=== PATIENT | female | born 1985 | race Caucasian/White ===

== ENCOUNTER 2017-10-15 13:41 | Emergency (ER) | payer SELFPAY ==
[~2017-10-15] VITALS: Ht 170.2 cm; Wt 74.8 kg
[~2017-10-15 13:41] MED LIST: CLIN150C14 PO; HYDR-971 PO; PROM25TA10 PO; TRAM50TA PO
--- NOTE | 2017-10-15 14:07 | PHYS DOC ---
Past Medical History Past Medical History: Anxiety, GERD, UTI Additional Past Medical Histor: herpes Past Surgical History: Tonsillectomy Additional Past Surgical Histo: collar bone, 47 moles removed Alcohol Use: Heavy Drug Use: Marijuana Adult General Chief Complaint Chief Complaint: COUGH HPI HPI Patient is a 31 year old female with a history of anxiety and smoking 1 pack of cigarettes a day who presents today with a productive cough for 1 month. Patient denies any fever. Review of Systems Review of Systems Constitutional: Denies fever or chills [] Eyes: Denies change in visual acuity, redness, or eye pain [] HENT: Denies nasal congestion or sore throat [] Respiratory: Reports productive cough, denies shortness of breath [] Cardiovascular: No additional information not addressed in HPI [] GI: Denies abdominal pain, nausea, vomiting, bloody stools or diarrhea [] : Denies dysuria or hematuria [] Musculoskeletal: Denies back pain or joint pain [] Integument: Denies rash or skin lesions [] Neurologic: Denies headache, focal weakness or sensory changes [] All other systems were reviewed and found to be within normal limits, except as documented in this note. Current Medications Current Medications Current Medications Medications (Trade) Dose Ordered Sig/Jus Start Time Stop Time Status Last Admin Dose Admin Albuterol/ Ipratropium (Duoneb) 3 ml 1X ONCE 10/15/17 14:15 10/15/17 14:16 DC 10/15/17 14:30 3 ML Benzonatate (Tessalon Perle) 100 mg 1X ONCE 10/15/17 14:15 10/15/17 14:16 DC 10/15/17 14:19 100 MG Prednisone (Prednisone) 60 mg 1X ONCE 10/15/17 14:15 10/15/17 14:16 DC 10/15/17 14:19 60 MG Allergies Allergies Allergies Coded Allergies Type Severity Reaction Last Updated Verified No Known Drug Allergies 02/19/15 No Physical Exam Physical Exam Constitutional: Well developed, well nourished, no acute distress, non-toxic appearance. [] HENT: Normocephalic, atraumatic, bilateral external ears normal, oropharynx moist, no oral exudates, nose normal. [] Eyes: PERRLA, EOMI, conjunctiva normal, no discharge. [] Neck: Normal range of motion, no tenderness, supple, no stridor. [] Cardiovascular:Heart rate regular rhythm, no murmur [] Lungs & Thorax: Bilateral breath sounds clear to auscultation, patient is actively coughing in the ED Abdomen: Bowel sounds normal, soft, no tenderness, no masses, no pulsatile masses. [] Skin: Warm, dry, no erythema, no rash. [] Back: No tenderness, no CVA tenderness. [] Extremities: No tenderness, no cyanosis, no clubbing, ROM intact, no edema. [] Neurologic: Alert and oriented X 3, normal motor function, normal sensory function, no focal deficits noted. [] Psychologic: Affect normal, judgement normal, mood normal. [] Current Patient Data Vital Signs Vital Signs Date Time Temp Pulse Resp B/P (MAP) Pulse Ox O2 Delivery O2 Flow Rate FiO2 10/15/17 14:30 Room Air 10/15/17 14:12 98.2 97 18 100 98.2 EKG EKG [] Radiology/Procedures Radiology/Procedures [] Course & Med Decision Making Course & Med Decision Making Pertinent Labs and Imaging studies reviewed. (See chart for details) Patient is in the ED with a productive cough for 1 month. She is a smoker, she was encouraged to consider smoking cessation. Chest x-ray interpreted by radiologist was negative for any acute findings. Symptoms are consistent with bronchitis. Discharged with albuterol inhaler prednisone and Tessalon Perles. Follow-up with PCP in 1-2 weeks. Dragon Disclaimer Dragon Disclaimer This electronic medical record was generated, in whole or in part, using a voice recognition dictation system. Departure Departure Impression: Primary Impression: Acute bronchitis Additional Impression: Smoking addiction Disposition: 01 HOME, SELF-CARE Condition: STABLE Referrals: NO PCP (PCP) Follow up with your doctor in one week Patient Instructions: Acute Bronchitis, [id number], Smoking Cessation Additional Instructions: You were seen with symptoms consistent of bronchitis, consider smoking cessation. Take the prescribed medicines as ordered. Follow-up with your doctor in 1-2 weeks. Scripts Benzonatate (TESSALON PERLE) 100 Mg Capsule 1 CAP PO TID, #30 CAP Prov: JESSICA SMITH SOFTWARE ANALYST 10/15/17 Albuterol Sulfate (PROAIR HFA INHALER) 8.5 Gm Hfa.aer.ad 1 PUFF INH PRN Q6HRS Y for SHORTNESS OF BREATH, #1 INHALER 0 Refills Prov: JESSICA SMITH APRN 10/15/17 Prednisone (PREDNISONE) 50 Mg Tablet 1 TAB PO DAILY, #4 TAB Prov: JESSICA SMITH APRN 10/15/17 Problem Qualifiers Primary Impression: Acute bronchitis Bronchitis organism: unspecified organism Qualified Codes: J20.9 - Acute bronchitis, unspecified JESSICA SMITH APRN Oct 15, 2017 14:07
[2017-10-15 14:12] VITALS: BP 149/102
[2017-10-15] MEDS ORDERED: predniSONE 20 MG TABLET PO ONE (14:15)
[2017-10-15] MEDS ORDERED: IPRATRPIUM/ALBUTEROL 0.5/2.5MG 3 ML NEBU. NEB ONE (14:15)
[2017-10-15] MEDS ORDERED: BENZONATATE 100 MG CAPSULE. PO ONE (14:15)
--- NOTE | 2017-10-15 15:05 | RAD ---
Two view chest History:Cough and congestion for 2 months . PA and lateral views of the chest are submitted. Comparison: 07/03/2015 Findings: There is no significant infiltrate, pleural effusion, or pneumothorax. The pericardial cardiac silhouette is within normal limits in size. Impression: There is no evidence of acute cardiopulmonary disease.
[2017-10-15] MEDS ORDERED: PROAIR HFA8.5 GM INH (15:20)
[2017-10-15] MEDS ORDERED: PRED50TA PO (15:20)
[2017-10-15] MEDS ORDERED: BENZ100C PO (15:20)
== END 2017-10-15 15:26 | disposition home or self-care (01) ==
LOC: ER 13:41
DX: J20.9 Acute bronchitis, unspecified (principal); K21.9 Gastro-esophageal reflux disease without esophagitis; F10.10 Alcohol abuse, uncomplicated; F17.210 Nicotine dependence, cigarettes, uncomplicated
CPT/HCPCS: 71020; 94250; 94640; 99284; J7512; J7620

== ENCOUNTER 2018-02-27 18:53 | Emergency (ER) | payer SELFPAY ==
[2018-02-27] MEDS: HYDROcodone/APAP 5/325MG 1 TAB TABLET PO (19:54)
== END 2018-02-27 20:56 | disposition home or self-care (01) ==
LOC: ER 18:53
DX: S93.402A Sprain of unspecified ligament of left ankle, initial encounter (principal); F41.9 Anxiety disorder, unspecified; F12.10 Cannabis abuse, uncomplicated; F10.20 Alcohol dependence, uncomplicated; Z87.440 Personal history of urinary (tract) infections; W01.0XXA Fall on same level from slipping, tripping and stumbling without subsequent striking against object, initial encounter; Y93.89 Activity, other specified; Y92.89 Other specified places as the place of occurrence of the external cause; Y99.8 Other external cause status
CPT/HCPCS: 73610; 99284

== ENCOUNTER 2018-07-15 16:35 | Emergency (ER) | payer SELFPAY ==
[~2018-07-15] VITALS: Ht 170.2 cm; Wt 81.6 kg
[~2018-07-15 16:35] MED LIST changes: +BENZ100C PO; +HYDR-2758 PO; +PRED50TA PO; +PROAIR HFA8.5 GM INH
[2018-07-15] MEDS ORDERED: fentaNYL PF VIAL 100 MCG/2 ML VIAL IV ONE ×2 (17:30→20:00)
[2018-07-15] MEDS ORDERED: IV NORMAL SALINE 1000ML BAG 1,000 ML IV ONE ×2 (17:30→20:15)
[2018-07-15 17:35] LABS: BASO # 0.1 x10^3/uL (0.0-0.2); BASO % 1 % (0-3); EOS # 0.1 x10^3/uL (0.0-0.7); EOS % 2 % (0-3); HEMATOCRIT 44.2 % (36.0-47.0); HEMOGLOBIN 15.1 g/dL (12.0-15.5); LYMPH # 3.4 x10^3/uL (1.0-4.8); LYMPH % 43 % (24-48); MEAN CORPUSCULAR HEMOGLOBIN 34 pg (25-35); MEAN CORPUSCULAR HGB CONC 34 g/dL (31-37); MEAN CORPUSCULAR VOLUME 99 fL (79-100); MONO # 0.5 x10^3/uL (0.0-1.1); MONO % 6 % (0-9); NEUT % 49 % (31-73); PLATELET COUNT 340 x10^3/uL (140-400); RED BLOOD COUNT 4.45 x10^6/uL (3.50-5.40); RED CELL DISTRIBUTION WIDTH 14.7 % (11.5-14.5); WHITE BLOOD COUNT 8.1 x10^3/uL (4.0-11.0)
[2018-07-15 17:36] LABS: BILIRUBIN,URINE SMALL (NEG); CLARITY,URINE TURBID; NITRITE,URINE NEGATIVE (NEG); PROTEIN,URINE NEGATIVE (NEG-TRACE)
[2018-07-15 17:55] LABS: COLOR,URINE DK YELLOW
[2018-07-15 18:00] LABS: AMORPHOUS SEDIMENT,UR PRESENT /HPF; BACTERIA,URINE FEW /HPF (0-FEW); RBC,URINE 0 /HPF (0-2); SQUAMOUS EPITHELIAL CELL,UR MOD /LPF; WBC,URINE RARE /HPF (0-4)
[2018-07-15 18:11] LABS: CALCIUM 8.9 mg/dL (8.5-10.1); CREATININE 0.7 mg/dL (0.6-1.0); POTASSIUM 3.6 mmol/L (3.5-5.1)
[2018-07-15 18:16] LABS: ALBUMIN 3.6 g/dL (3.4-5.0); TOTAL BILIRUBIN 0.7 mg/dL (0.2-1.0); TOTAL PROTEIN 7.2 g/dL (6.4-8.2)
[2018-07-15 19:45] LABS: U PREG PATIENT NEGATIVE (NEG)
[2018-07-15] MEDS ORDERED: CIPROFLOXACIN 400MG PREMIX 200 ML IV SCH (20:00)
--- NOTE | 2018-07-15 20:08 | RAD ---
EXAM: Abdomen and pelvis CT without intravenous contrast. HISTORY: Right flank pain. TECHNIQUE: Computed tomographic images of the abdomen and pelvis were obtained without contrast. Multiplanar reformatting was performed. *One or more of the following individualized dose reduction techniques were utilized for this examination: 1. Automated exposure control. 2. Adjustment of the mA and/or kV according to patient size. 3. Use of iterative reconstruction technique. COMPARISON: None. FINDINGS: Evaluation of the lower thorax demonstrates no infiltrate or pleural effusion. There is a small hiatal hernia. No hepatic lesion is seen. The gallbladder is distended. This can be due to the preprandial status the patient. There is no gallbladder wall thickening or pericholecystic stranding or fluid to suggest cholecystitis. The pancreas, spleen and adrenal glands are unremarkable. There is a 1 mm nonobstructing left renal stone. No obstructing stone is seen. There is no hydronephrosis or hydroureter. The bladder is unremarkable. There is no appendicitis. There is no bowel obstruction. There is no colitis or enteritis. There are multiple bilateral ovarian cysts, the largest of which on the right measures 3.8 cm and the largest of which on the left measures 2.7 cm. There is no lymphadenopathy. There is no suspicious osseous lesion. There is a mild anterior wedge deformity of T12 and near complete loss of the T12-L1 disc space, likely congenital or the sequela of remote injury. IMPRESSION: 1. Punctate nonobstructing left renal stone. There is no obstructive uropathy. 2. Multiple ovarian cysts, the largest of which measures 3.8 cm on the right. This can be better assessed with a pelvic sonogram. Electronically signed by: Genet Zaidi MD (07/15/2018 8:04 PM) [facility]
[2018-07-15] MEDS ORDERED: KETOROLAC 30 MG/ML VIAL. IV ONE (20:15)
[2018-07-15] MEDS ORDERED: TAMSULOSIN 0.4 MG CAP.ER.24H. PO ONE (20:15)
[2018-07-15 20:22] VITALS: BP 137/82
[2018-07-15] MEDS ORDERED: IBUP-1060 PO (20:31)
[2018-07-15] MEDS ORDERED: TAMS0.4C97 PO (20:31)
[2018-07-15] MEDS ORDERED: OXYC-323 PO (20:31)
--- NOTE | 2018-07-15 20:32 | PHYS DOC ---
Past Medical History Past Medical History: Anxiety, GERD, UTI Additional Past Medical Histor: herpes Past Surgical History: Tonsillectomy Additional Past Surgical Histo: CLAVICLE Alcohol Use: Heavy Drug Use: Marijuana Adult General Chief Complaint Chief Complaint: FLANK PAIN [facility] HPI Patient is a 32 year old female who presents with flank pain. The patient states that the pain is been going on intermittently for the past week and a half. She denies fever, nausea or vomiting. She states that she is very fatigued from the pain. She states that her urine is extremely odorous. Review of Systems Review of Systems Constitutional: Denies fever or chills [] Respiratory: Denies cough or shortness of breath [] Cardiovascular: No additional information not addressed in HPI [] GI: Denies abdominal pain, nausea, vomiting, bloody stools or diarrhea [] : See history of present illness Musculoskeletal: See history of present illness Integument: Denies rash or skin lesions [] Neurologic: Denies headache, focal weakness or sensory changes [] Endocrine: Denies polyuria or polydipsia [] All other systems were reviewed and found to be within normal limits, except as documented in this note. Current Medications Current Medications Current Medications Medications (Trade) Dose Ordered Sig/Jus Start Time Stop Time Status Last Admin Dose Admin Ciprofloxacin/ Dextrose 200 ml @ 200 mls/hr Q12HR 07/15/18 20:00 07/15/18 21:36 DC 07/15/18 20:25 200 MLS/HR Fentanyl Citrate (Fentanyl 2ml Vial) 50 mcg 1X ONCE 07/15/18 20:00 07/15/18 20:01 DC 07/15/18 20:24 50 MCG Ketorolac Tromethamine (Toradol 30mg Vial) 30 mg 1X ONCE 07/15/18 20:15 07/15/18 20:16 DC 07/15/18 20:23 30 MG Sodium Chloride 1,000 ml @ 1,000 mls/hr 1X ONCE 07/15/18 20:15 07/15/18 21:14 DC 07/15/18 20:21 1,000 MLS/HR Tamsulosin HCl (Flomax) 0.4 mg 1X ONCE 07/15/18 20:15 07/15/18 20:16 DC 07/15/18 20:25 0.4 MG Allergies Allergies Allergies Coded Allergies Type Severity Reaction Last Updated Verified No Known Drug Allergies 02/19/15 No Physical Exam Physical Exam Constitutional: Well developed, well nourished, no acute distress, non-toxic appearance. [] Neck: Normal range of motion, no tenderness, supple, no stridor. [] Cardiovascular:Heart rate regular rhythm, no murmur [] Lungs & Thorax: Bilateral breath sounds clear to auscultation [] Abdomen: Bowel sounds normal, soft, no tenderness, no masses, no pulsatile masses. [] Skin: Warm, dry, no erythema, no rash. [] Back: left CVA tenderness. [] Extremities: No tenderness, no cyanosis, no clubbing, ROM intact, no edema. [] Neurologic: Alert and oriented X 3, normal motor function, normal sensory function, no focal deficits noted. [] Psychologic: Affect normal, judgement normal, mood normal. [] Current Patient Data Vital Signs Vital Signs Date Time Temp Pulse Resp B/P (MAP) Pulse Ox O2 Delivery O2 Flow Rate FiO2 07/15/18 20:22 86 137/82 (100) 97 Room Air 07/15/18 17:20 98.1 18 98.1 Lab Values Laboratory Tests Test 07/15/18 17:20 07/15/18 17:30 07/15/18 18:00 Urine Collection Type Unknown Urine Color Dk yellow Urine Clarity Turbid Urine pH 5.0 Urine Specific Essie >=1.030 Urine Protein Negative mg/dL (NEG-TRACE) Urine Glucose (UA) Negative mg/dL (NEG) Urine Ketones (Stick) Negative mg/dL (NEG) Urine Blood Negative (NEG) Urine Nitrite Negative (NEG) Urine Bilirubin Small (NEG) Urine Urobilinogen Dipstick 1.0 mg/dL (0.2 mg/dL) Urine Leukocyte Esterase Trace (NEG) Urine RBC 0 /HPF (0-2) Urine WBC Rare /HPF (0-4) Urine Squamous Epithelial Cells Mod /LPF Urine Amorphous Sediment Present /HPF Urine Bacteria Few /HPF (0-FEW) Urine Mucus Mod /LPF Urine Test Negative (NEG) White Blood Count 8.1 x10^3/uL (4.0-11.0) Red Blood Count 4.45 x10^6/uL (3.50-5.40) Hemoglobin 15.1 g/dL (12.0-15.5) Hematocrit 44.2 % (36.0-47.0) Mean Corpuscular Volume 99 fL (79-100) Mean Corpuscular Hemoglobin 34 pg (25-35) Mean Corpuscular Hemoglobin Concent 34 g/dL (31-37) Red Cell Distribution Width 14.7 % (11.5-14.5) H Platelet Count 340 x10^3/uL (140-400) Neutrophils (%) (Auto) 49 % (31-73) Lymphocytes (%) (Auto) 43 % (24-48) Monocytes (%) (Auto) 6 % (0-9) Eosinophils (%) (Auto) 2 % (0-3) Basophils (%) (Auto) 1 % (0-3) Neutrophils # (Auto) 4.0 x10^3uL (1.8-7.7) Lymphocytes # (Auto) 3.4 x10^3/uL (1.0-4.8) Monocytes # (Auto) 0.5 x10^3/uL (0.0-1.1) Eosinophils # (Auto) 0.1 x10^3/uL (0.0-0.7) Basophils # (Auto) 0.1 x10^3/uL (0.0-0.2) Sodium Level 134 mmol/L (136-145) L Potassium Level 3.6 mmol/L (3.5-5.1) Chloride Level 100 mmol/L (98-107) Carbon Dioxide Level 26 mmol/L (21-32) Anion Gap 8 (6-14) Blood Urea Nitrogen 9 mg/dL (7-20) Creatinine 0.7 mg/dL (0.6-1.0) Estimated GFR (Cockcroft-Gault) 97.0 BUN/Creatinine Ratio 13 (6-20) Glucose Level 93 mg/dL (70-99) Calcium Level 8.9 mg/dL (8.5-10.1) Total Bilirubin 0.7 mg/dL (0.2-1.0) Aspartate Amino Transferase (AST) 24 U/L (15-37) Alanine Aminotransferase (ALT) 22 U/L (14-59) Alkaline Phosphatase 90 U/L (46-116) Total Protein 7.2 g/dL (6.4-8.2) Albumin 3.6 g/dL (3.4-5.0) Albumin/Globulin Ratio 1.0 (1.0-1.7) Amylase Level 23 U/L (25-115) L Lipase 125 U/L (73-393) Laboratory Tests 07/15/18 17:30 Laboratory Tests 07/15/18 18:00 EKG EKG [] Radiology/Procedures Radiology/Procedures [] PATIENT: RAYNA KLEIN ACCOUNT: [id number] : 1985 LOCATION: ER AGE: 32 SEX: F EXAM STATUS: REG ER ORD. PHYSICIAN: EN WELSH APRN REASON: right flank pain PROCEDURE: CT ABDOMEN PELVIS WO CONTRAST EXAM: Abdomen and pelvis CT without intravenous contrast. HISTORY: Right flank pain. TECHNIQUE: Computed tomographic images of the abdomen and pelvis were obtained without contrast. Multiplanar reformatting was performed. *One or more of the following individualized dose reduction techniques were utilized for this examination: 1. Automated exposure control. 2. Adjustment of the mA and/or kV according to patient size. 3. Use of iterative reconstruction technique. COMPARISON: None. FINDINGS: Evaluation of the lower thorax demonstrates no infiltrate or pleural effusion. There is a small hiatal hernia. No hepatic lesion is seen. The gallbladder is distended. This can be due to the preprandial status the patient. There is no gallbladder wall thickening or pericholecystic stranding or fluid to suggest cholecystitis. The pancreas, spleen and adrenal glands are unremarkable. There is a 1 mm nonobstructing left renal stone. No obstructing stone is seen. There is no hydronephrosis or hydroureter. The bladder is unremarkable. There is no appendicitis. There is no bowel obstruction. There is no colitis or enteritis. There are multiple bilateral ovarian cysts, the largest of which on the right measures 3.8 cm and the largest of which on the left measures 2.7 cm. There is no lymphadenopathy. There is no suspicious osseous lesion. There is a mild anterior wedge deformity of T12 and near complete loss of the T12-L1 disc space, likely congenital or the sequela of remote injury. IMPRESSION: 1. Punctate nonobstructing left renal stone. There is no obstructive uropathy. 2. Multiple ovarian cysts, the largest of which measures 3.8 cm on the right. This can be better assessed with a pelvic sonogram. Electronically signed by: Genet Zaidi MD (07/15/2018 8:04 PM) [facility] DICTATED and SIGNED BY: GENET ZAIDI MD DATE: 07/15/182000 Course & Med Decision Making Course & Med Decision Making Pertinent Labs and Imaging studies reviewed. (See chart for details) []The patient was given saline, Flomax, Toradol and pain medication in the emergency department Dragon Disclaimer Dragon Disclaimer This electronic medical record was generated, in whole or in part, using a voice recognition dictation system. Departure Departure Impression: Primary Impression: Kidney stone Disposition: HOME, SELF-CARE Condition: STABLE Referrals: NO PCP (PCP) Patient Instructions: Diet for Kidney Stones, Kidney Stones Additional Instructions: Take the medication as directed. Follow-up with urology. Use the strainer for urination to collect the stone. Do not drive or operate heavy machinery while taking the pain medication. If worsening return to the emergency department. Scripts Tamsulosin Hcl (FLOMAX) 0.4 Mg Cap.er.24h 1 CAP PO DAILY, #15 CAP 11 Refills Prov: EN WELSH APRN 07/15/18 Oxycodone/Apap 5-325 (PERCOCET 5-325 MG TABLET) 1 Each Tablet 1 TAB PO PRN Q6HRS PRN for PAIN, #20 TAB 0 Refills Prov: EN WELSH APRN 07/15/18 Ibuprofen (IBUPROFEN) 800 Mg Tablet 800 MG PO PRN Q6HRS PRN for INFLAMMATION, #30 TAB Prov: EN WELSH APRN 07/15/18 EN WELSH APRN Jul 15, 2018 20:32
== END 2018-07-15 21:36 | disposition home or self-care (01) ==
LOC: ER 16:35
DX: N20.0 Calculus of kidney (principal); F41.9 Anxiety disorder, unspecified; K21.9 Gastro-esophageal reflux disease without esophagitis; N39.0 Urinary tract infection, site not specified; F10.10 Alcohol abuse, uncomplicated; Y90.9 Presence of alcohol in blood, level not specified; Z90.89 Acquired absence of other organs; Z87.440 Personal history of urinary (tract) infections
CPT/HCPCS: 36415; 74176; 80053; 81001; 81025; 82150; 83690; 85025; 87086; 96365; 96375; 96376; 99285; J0744; J1885; J3010; J7030

== ENCOUNTER 2019-02-22 12:58 | Emergency (ER) | payer SELFPAY ==
[~2019-02-22] VITALS: Ht 170.2 cm; Wt 90.7 kg
[~2019-02-22 12:58] MED LIST changes: +ALBU2.5V8 INH; -HYDR-2758 PO; +HYDR-2761 PO; +HYDR-3164 PO; -HYDR-971 PO; +IBUP-1060 PO; +OXYC1TAB15 PO; -PROAIR HFA8.5 GM INH; +TAMS0.4C97 PO
[2019-02-22 13:42] VITALS: BP 147/100
--- NOTE | 2019-02-22 14:35 | PHYS DOC ---
Past Medical History Past Medical History: No Pertinent History, Anxiety, GERD, UTI Additional Past Medical Histor: herpes Past Surgical History: Tonsillectomy Additional Past Surgical Histo: CLAVICLE Alcohol Use: Heavy Drug Use: Marijuana Adult General Chief Complaint Chief Complaint: DENTAL PROBLEM HPI HPI Patient is a 33 year old female who presents with 8 out of 10 left upper and lower gum dental pain that began yesterday. Patient denies any fever or trismus. She states she has tried [id number] remedies with no relief. Review of Systems Review of Systems Constitutional: Denies fever or chills [] HENT: Reports left upper and lower gum pain Musculoskeletal: Denies back pain or joint pain [] Integument: Denies rash or skin lesions [] Neurologic: Denies headache, focal weakness or sensory changes [] All other systems were reviewed and found to be within normal limits, except as documented in this note. Allergies Allergies Allergies Coded Allergies Type Severity Reaction Last Updated Verified No Known Drug Allergies 02/19/15 No Physical Exam Physical Exam Constitutional: Well developed, well nourished, no acute distress, non-toxic appearance. [] HENT: Normocephalic, atraumatic, bilateral external ears normal, oropharynx moist, no oral exudates, nose normal. [] Missing the molars and premolars on the left upper gum, left lower gum missing the molars and premolars, most of the remaining teeth are broken and decayed on the left side. Slight gum erythema noted. No gum abscess Skin: Warm, dry, no erythema, no rash. [] Back: No tenderness, no CVA tenderness. [] Extremities: No tenderness, no cyanosis, no clubbing, ROM intact, no edema. [] Neurologic: Alert and oriented X 3, normal motor function, normal sensory function, no focal deficits noted. [] Psychologic: Affect normal, judgement normal, mood normal. [] Current Patient Data Vital Signs Vital Signs Date Time Temp Pulse Resp B/P (MAP) Pulse Ox O2 Delivery O2 Flow Rate FiO2 02/22/19 13:42 97.9 103 16 147/100 (116) 97 Room Air 97.9 EKG EKG [] Radiology/Procedures Radiology/Procedures [] Course & Med Decision Making Course & Med Decision Making Pertinent Labs and Imaging studies reviewed. (See chart for details) This is a 33-year-old female patient presenting to the ED today complaining of dental pain. Patient has infected dental caries. Will be given prescription for amoxicillin and instructed to follow-up with a dentist. Kassandra Disclaimer Kassandra Disclaimer This electronic medical record was generated, in whole or in part, using a voice recognition dictation system. Departure Departure Impression: Primary Impression: Dentalgia Additional Impression: Infected dental caries Disposition: HOME, SELF-CARE Condition: STABLE Referrals: NO PCP (PCP) Follow-up with your dentist as soon as possible Patient Instructions: Dental Caries-Brief Additional Instructions: You were elevated in the emergency room and noted to have dental infection, please complete your antibiotics. Follow-up with the dentist as soon as possible. Scripts Hydrocodone/Apap 5-325 (NORCO 5-325 TABLET) 1 Each Tablet 1 TAB PO Q6HRS, #12 TAB MUST fill amoxicillin RX prior to being allowe to fill [place] Prov: JESSICA SMITH APRN 02/22/19 Amoxicillin (AMOXICILLIN) 500 Mg Tablet 1 TAB PO BID, #20 TAB Prov: JESSICA SMITH APRN 02/22/19 Problem Qualifiers JESSICA SMITH APRN Feb 22, 2019 14:35
[2019-02-22] MEDS ORDERED: AMOX500T PO (14:40)
[2019-02-22] MEDS ORDERED: HYDR-3164 PO (14:40)
== END 2019-02-22 14:48 | disposition home or self-care (01) ==
LOC: ER 12:58
DX: K02.9 Dental caries, unspecified (principal); F41.9 Anxiety disorder, unspecified; K21.9 Gastro-esophageal reflux disease without esophagitis; F10.20 Alcohol dependence, uncomplicated; Y90.9 Presence of alcohol in blood, level not specified; Z90.89 Acquired absence of other organs
CPT/HCPCS: 99283

== ENCOUNTER 2019-06-17 13:14 | Emergency (ER) | payer SELFPAY ==
[~2019-06-17] VITALS: Ht 170.2 cm; Wt 95.3 kg
[~2019-06-17 13:14] MED LIST changes: +AMOX500T PO
--- NOTE | 2019-06-17 14:41 | PHYS DOC ---
Past Medical History Past Medical History: No Pertinent History Additional Past Medical Histor: herpes Past Surgical History: No Surgical History Additional Past Surgical Histo: CLAVICLE Alcohol Use: None Drug Use: None Adult General Chief Complaint Chief Complaint: DENTAL PROBLEM HPI HPI Patient is a 33 year old female that presents with dental pain has been ongoing for 3 weeks. The patient states the pain is gotten worse the last couple days. Patient rates her pain as 6 out of 10 in severity, states she took a aspirin at 7 AM. Also states she's been having facial swelling, and redness on her cheek going down to her neck. Review of Systems Review of Systems Constitutional: Denies fever or chills [] Eyes: Denies change in visual acuity, redness, or eye pain [] HENT: Reports facial pain and dental pain.] Respiratory: Denies cough or shortness of breath [] Cardiovascular: No additional information not addressed in HPI [] GI: Denies abdominal pain, nausea, vomiting, bloody stools or diarrhea [] : Denies dysuria or hematuria [] Musculoskeletal: Denies back pain or joint pain [] Integument: Denies rash or skin lesions [] Neurologic: Denies headache, focal weakness or sensory changes [] Endocrine: Denies polyuria or polydipsia [] Complete systems were reviewed and found to be within normal limits, except as documented in this note. Current Medications Current Medications Current Medications Medications (Trade) Dose Ordered Sig/Jus Start Time Stop Time Status Last Admin Dose Admin Clindamycin Phosphate 50 ml @ 100 mls/hr 1X ONCE 06/17/19 15:00 06/17/19 15:29 DC 06/17/19 15:27 100 MLS/HR Dexamethasone Sodium Phosphate (Decadron) 10 mg 1X ONCE 06/17/19 15:00 06/17/19 15:01 DC 06/17/19 15:26 10 MG Diphenhydramine HCl (Benadryl) 25 mg 1X ONCE 06/17/19 16:45 06/17/19 16:46 Info (CONTRAST GIVEN -- Rx MONITORING) 1 each PRN DAILY PRN 06/17/19 16:15 06/19/19 16:14 Iohexol (Omnipaque 300 Mg/ml) 70 ml 1X ONCE 06/17/19 16:15 06/17/19 16:16 DC Morphine Sulfate (Morphine Sulfate) 4 mg STK-MED ONCE 06/17/19 15:41 06/17/19 15:42 DC Allergies Allergies Allergies Coded Allergies Type Severity Reaction Last Updated Verified No Known Drug Allergies 02/19/15 No Physical Exam Physical Exam Constitutional: Well developed, well nourished, no acute distress, non-toxic appearance. [] HENT: Normocephalic, atraumatic, bilateral external ears normal, oropharynx moist, no oral exudates, nose normal. Dental infection and abscess at #6, 29, and 30. Eyes: PERRLA, EOMI, conjunctiva normal, no discharge. [] Neck: Normal range of motion, has redness on the right cheek streaking to the bottom of the mandible. Cardiovascular:Heart rate regular rhythm, no murmur [] Lungs & Thorax: Bilateral breath sounds clear to auscultation [] Abdomen: Bowel sounds normal, soft, no tenderness, no masses, no pulsatile masses. [] Skin: Warm, dry, no erythema, no rash. [] Back: No tenderness, no CVA tenderness. [] Extremities: No tenderness, no cyanosis, no clubbing, ROM intact, no edema. [] Neurologic: Alert and oriented X 3, normal motor function, normal sensory function, no focal deficits noted. [] Psychologic: Affect normal, judgement normal, mood normal. [] Current Patient Data Vital Signs Vital Signs Date Time Temp Pulse Resp B/P (MAP) Pulse Ox O2 Delivery O2 Flow Rate FiO2 06/17/19 15:42 16 06/17/19 13:42 98.1 99 115/86 (96) 99 Room Air 98.1 Lab Values Laboratory Tests Test 06/17/19 15:14 White Blood Count 5.0 x10^3/uL (4.0-11.0) Red Blood Count 3.72 x10^6/uL (3.50-5.40) Hemoglobin 13.7 g/dL (12.0-15.5) Hematocrit 38.6 % (36.0-47.0) Mean Corpuscular Volume 104 fL (79-100) H Mean Corpuscular Hemoglobin 37 pg (25-35) H Mean Corpuscular Hemoglobin Concent 36 g/dL (31-37) Red Cell Distribution Width 17.3 % (11.5-14.5) H Platelet Count 300 x10^3/uL (140-400) Neutrophils (%) (Auto) 46 % (31-73) Lymphocytes (%) (Auto) 47 % (24-48) Monocytes (%) (Auto) 5 % (0-9) Eosinophils (%) (Auto) 1 % (0-3) Basophils (%) (Auto) 1 % (0-3) Neutrophils # (Auto) 2.3 x10^3/uL (1.8-7.7) Lymphocytes # (Auto) 2.3 x10^3/uL (1.0-4.8) Monocytes # (Auto) 0.2 x10^3/uL (0.0-1.1) Eosinophils # (Auto) 0.1 x10^3/uL (0.0-0.7) Basophils # (Auto) 0.1 x10^3/uL (0.0-0.2) Sodium Level 138 mmol/L (136-145) Potassium Level 3.4 mmol/L (3.5-5.1) L Chloride Level 101 mmol/L (98-107) Carbon Dioxide Level 28 mmol/L (21-32) Anion Gap 9 (6-14) Blood Urea Nitrogen 9 mg/dL (7-20) Creatinine 0.8 mg/dL (0.6-1.0) Estimated GFR (Cockcroft-Gault) 82.6 BUN/Creatinine Ratio 11 (6-20) Glucose Level 86 mg/dL (70-99) Calcium Level 8.6 mg/dL (8.5-10.1) Total Bilirubin 0.5 mg/dL (0.2-1.0) Aspartate Amino Transferase (AST) 37 U/L (15-37) Alanine Aminotransferase (ALT) 24 U/L (14-59) Alkaline Phosphatase 89 U/L (46-116) Total Protein 6.9 g/dL (6.4-8.2) Albumin 3.4 g/dL (3.4-5.0) Albumin/Globulin Ratio 1.0 (1.0-1.7) Serum Test, Qualitative Negative (NEG) Laboratory Tests 06/17/19 15:14 Laboratory Tests 06/17/19 15:14 EKG EKG [] Radiology/Procedures Radiology/Procedures [] Course & Med Decision Making Course & Med Decision Making Pertinent Labs and Imaging studies reviewed. (See chart for details) Will get labs, CT of face, and give IV clindamycin. Patient improved dramatically with dexamethasone and clindamycin. Will d/c home on Clindamycin. Dragon Disclaimer Dragon Disclaimer This electronic medical record was generated, in whole or in part, using a voice recognition dictation system. Departure Departure Impression: Primary Impression: Cellulitis Additional Impression: Dental abscess Disposition: HOME, SELF-CARE Condition: STABLE Referrals: NO PCP (PCP) Patient Instructions: Dental Abscess Additional Instructions: Thank you for visiting [facility]. We appreciate you trusting us with your care. If any additional problems come up don't hesitate to return to visit us. Please follow up with your primary care provider so they can plan additional care if needed and know about the problem that you had. If symptoms worsen come back to the Emergency Department. Any concerning symptoms that start such as chest pain, shortness of air, weakness or numbness on one side of the body, running high fevers or any other concerning symptoms return to the ER. You have been prescribed an antibiotic today to help fight your infection. Please take all of the antibiotic as directed. If after 48 hours the infection is not improving, please return for more care. If the infection worsens, return to ER for additional care. Please fill your medications at any pharmacy and follow the prescription instructions. Scripts Clindamycin Hcl (CLINDAMYCIN HCL) 150 Mg Capsule 3 CAP PO TID for 7 Days, #63 CAP Prov: CORINE CALLES APRN 06/17/19 Problem Qualifiers Primary Impression: Cellulitis Site of cellulitis: face Qualified Codes: L03.211 - Cellulitis of face CORINE CALLES APRN Jun 17, 2019 14:41
[2019-06-17] MEDS ORDERED: DEXAMETHASONE SOD PHOS 4 MG/ML VIAL IV ONE (15:00)
[2019-06-17] MEDS ORDERED: CLINDAMYCIN 600MG PREMIX 50 ML IV ONE (15:00)
[2019-06-17 15:26] LABS: BASO # 0.1 x10^3/uL (0.0-0.2); BASO % 1 % (0-3); EOS # 0.1 x10^3/uL (0.0-0.7); EOS % 1 % (0-3); HEMATOCRIT 38.6 % (36.0-47.0); HEMOGLOBIN 13.7 g/dL (12.0-15.5); LYMPH # 2.3 x10^3/uL (1.0-4.8); LYMPH % 47 % (24-48); MEAN CORPUSCULAR HEMOGLOBIN 37 pg (25-35); MEAN CORPUSCULAR HGB CONC 36 g/dL (31-37); MEAN CORPUSCULAR VOLUME 104 fL (79-100); MONO # 0.2 x10^3/uL (0.0-1.1); MONO % 5 % (0-9); NEUT # 2.3 x10^3/uL (1.8-7.7); NEUT % 46 % (31-73); PLATELET COUNT 300 x10^3/uL (140-400); RED BLOOD COUNT 3.72 x10^6/uL (3.50-5.40); RED CELL DISTRIBUTION WIDTH 17.3 % (11.5-14.5)
[2019-06-17 15:34] LABS: CALCIUM 8.6 mg/dL (8.5-10.1); CREATININE 0.8 mg/dL (0.6-1.0); GFR 82.6; POTASSIUM 3.4 mmol/L (3.5-5.1)
[2019-06-17 15:40] LABS: ALBUMIN 3.4 g/dL (3.4-5.0); TOTAL BILIRUBIN 0.5 mg/dL (0.2-1.0); TOTAL PROTEIN 6.9 g/dL (6.4-8.2)
[2019-06-17] MEDS ORDERED: MORPHINE SULFATE 4 MG/ML VIAL. ONE (15:41)
[2019-06-17] MEDS ORDERED: MORPHINE SULFATE 4 MG/ML VIAL. IV ONE (15:45)
[2019-06-17 15:53] LABS: PREG TEST PT QUAL NEGATIVE (NEG)
[2019-06-17] MEDS ORDERED: CONTRAST GIVEN. MC PRN (16:15)
[2019-06-17] MEDS ORDERED: IOHEXOL 300 MG/ML 100ML VIAL. IV ONE (16:15)
[2019-06-17] MEDS ORDERED: CLIN150C14 PO (16:28)
[2019-06-17 16:30] VITALS: BP 135/75
[2019-06-17] MEDS ORDERED: diphenhydrAMINE 50 MG/ML VIAL IVP ONE (16:45)
== END 2019-06-17 16:37 | disposition home or self-care (01) ==
LOC: ER 13:14
DX: L03.211 Cellulitis of face (principal); K04.7 Periapical abscess without sinus
CPT/HCPCS: 36415; 80053; 84703; 85025; 96365; 96375; 99284; J1100; J2270; J3490

== ENCOUNTER 2019-10-03 11:52 | Emergency (ER) | payer SELFPAY ==
[~2019-10-03] VITALS: Ht 170.2 cm; Wt 95.3 kg
[2019-10-03 12:49] VITALS: BP 159/97
[2019-10-03] MEDS ORDERED: AMOX875T PO (14:27)
[2019-10-03] MEDS ORDERED: HYDR-3164 PO (14:27)
--- NOTE | 2019-10-03 14:29 | PHYS DOC ---
Past Medical History Past Medical History: No Pertinent History Additional Past Medical Histor: herpes Past Surgical History: No Surgical History Additional Past Surgical Histo: CLAVICLE Alcohol Use: None Drug Use: None Adult General Chief Complaint Chief Complaint: DENTAL PROBLEM HPI HPI Patient is a 33 year old female who presents to the ED today complaining of moderate left lower gum dental pain that began yesterday. Patient denies any fever or trismus. Review of Systems Review of Systems Constitutional: Denies fever or chills [] HENT: Denies nasal congestion or sore throat [] Reports dental pain Musculoskeletal: Denies back pain or joint pain [] Integument: Denies rash or skin lesions [] Neurologic: Denies headache, focal weakness or sensory changes [] All other systems were reviewed and found to be within normal limits, except as documented in this note. Allergies Allergies Allergies Coded Allergies Type Severity Reaction Last Updated Verified No Known Drug Allergies 02/19/15 No Physical Exam Physical Exam Constitutional: Well developed, well nourished, no acute distress, non-toxic appearance. [] HENT: Normocephalic, atraumatic, bilateral external ears normal, oropharynx moist, no oral exudates, nose normal. [] Left lower gum with small amount of swelling, left lower molars and premolars are broken and decayed. Skin: Warm, dry, no erythema, no rash. [] Back: No tenderness, no CVA tenderness. [] Extremities: No tenderness, no cyanosis, no clubbing, ROM intact, no edema. [] Neurologic: Alert and oriented X 3, normal motor function, normal sensory fu nction, no focal deficits noted. [] Psychologic: Affect normal, judgement normal, mood normal. [] Current Patient Data Vital Signs Vital Signs Date Time Temp Pulse Resp B/P (MAP) Pulse Ox O2 Delivery O2 Flow Rate FiO2 10/03/19 12:49 98.0 90 16 159/97 (117) 97 Room Air 98.0 EKG EKG [] Radiology/Procedures Radiology/Procedures [] Course & Med Decision Making Course & Med Decision Making Pertinent Labs and Imaging studies reviewed. (See chart for details) This is a 33-year-old female patient presenting to the ED today with a dental abscess. Patient was instructed to follow-up with her dentist. Discharged on amoxicillin Kassandra Disclaimer Dragon Disclaimer This electronic medical record was generated, in whole or in part, using a voice recognition dictation system. Departure Departure Impression: Primary Impression: Dental abscess Additional Impression: Dentalgia Disposition: 01 HOME, SELF-CARE Condition: STABLE Referrals: NO PCP (PCP) Follow up with a dentist as soon as possible Patient Instructions: Dental Abscess Additional Instructions: You were evaluated in the emergency room for dental infection, take the prescribed antibiotics until completed. Follow-up with the dentist as soon as possible. Your prescriptions were sent to your pharmacy Scripts Amoxicillin (AMOXICILLIN) 875 Mg Tablet 1 TAB PO BID, #20 TAB Prov: JESSICA SMITH APRN 10/03/19 Problem Qualifiers JESSICA SMITH APRN Oct 03, 2019 14:29
== END 2019-10-03 14:34 | disposition home or self-care (01) ==
LOC: ER 11:52
DX: K04.7 Periapical abscess without sinus (principal)
CPT/HCPCS: 99283

== ENCOUNTER 2019-11-26 11:39 | Emergency (ER) | payer SELFPAY ==
[~2019-11-26] VITALS: Ht 170.2 cm; Wt 95.3 kg
[~2019-11-26 11:39] MED LIST changes: +AMOX875T PO
[2019-11-26 13:03] VITALS: BP 162/110
--- NOTE | 2019-11-26 13:54 | PHYS DOC ---
Past Medical History Past Medical History: No Pertinent History Additional Past Medical Histor: herpes Past Surgical History: No Surgical History Additional Past Surgical Histo: CLAVICLE Alcohol Use: None Drug Use: None Adult General Chief Complaint Chief Complaint: NAUSEA/VOMITING/DIARRHA HPI HPI Patient is a 34 year old female who presents with nausea, and vomiting with some diarrhea the last month. The patient also states that she has been increasingly fatigued. The patient states that her last menstrual. She thought was a week ago but it was different than normal. The patient states she was having spotting and then heavy vaginal bleeding. The patient states before that her last period had been a couple of months. Review of Systems Review of Systems Constitutional: Reports fatigue. Denies fever or chills [] Eyes: Denies change in visual acuity, redness, or eye pain [] HENT: Denies nasal congestion or sore throat [] Respiratory: Denies cough or shortness of breath [] Cardiovascular: No additional information not addressed in HPI [] GI: Reports n/v/d. Denies abdominal pain. : Reports vaginal bleeding. Musculoskeletal: Denies back pain or joint pain [] Integument: Denies rash or skin lesions [] Neurologic: Denies headache, focal weakness or sensory changes [] Endocrine: Denies polyuria or polydipsia [] Complete systems were reviewed and found to be within normal limits, except as documented in this note. Current Medications Current Medications Current Medications Medications (Trade) Dose Ordered Sig/Jus Start Time Stop Time Status Last Admin Dose Admin Ondansetron HCl (Zofran Odt) 4 mg 1X STAT 11/26/19 14:09 11/26/19 14:11 DC 11/26/19 14:14 4 MG Allergies Allergies Allergies Coded Allergies Type Severity Reaction Last Updated Verified No Known Drug Allergies 02/19/15 No Physical Exam Physical Exam Constitutional: Well developed, well nourished, no acute distress, non-toxic appearance. [] HENT: Normocephalic, atraumatic, bilateral external ears normal, oropharynx moist, no oral exudates, nose normal. [] Eyes: PERRLA, EOMI, conjunctiva normal, no discharge. [] Neck: Normal range of motion, no tenderness, supple, no stridor. [] Cardiovascular:Heart rate regular rhythm, no murmur [] Lungs & Thorax: Bilateral breath sounds clear to auscultation [] Abdomen: Bowel sounds normal, soft, mild generalized tenderness, no masses, no pulsatile masses. [] Skin: Warm, dry, no erythema, no rash. [] Back: No tenderness, no CVA tenderness. [] Extremities: No tenderness, no cyanosis, no clubbing, ROM intact, no edema. [] Neurologic: Alert and oriented X 3, normal motor function, normal sensory function, no focal deficits noted. [] Psychologic: Affect normal, judgement normal, mood normal. [] Current Patient Data Vital Signs Vital Signs Date Time Temp Pulse Resp B/P (MAP) Pulse Ox O2 Delivery O2 Flow Rate FiO2 11/26/19 13:03 97.4 92 18 162/110 (127) 97 Room Air 97.4 Lab Values Laboratory Tests Test 11/26/19 13:50 11/26/19 15:10 Urine Collection Type Unknown Urine Color Rachel Urine Clarity Clear Urine pH 7.0 Urine Specific Davis 1.020 Urine Protein Negative mg/dL (NEG-TRACE) Urine Glucose (UA) Negative mg/dL (NEG) Urine Ketones (Stick) Negative mg/dL (NEG) Urine Blood Negative (NEG) Urine Nitrite Negative (NEG) Urine Bilirubin Negative (NEG) Urine Urobilinogen Dipstick 1.0 mg/dL (0.2 mg/dL) Urine Leukocyte Esterase Negative (NEG) Urine RBC 1-2 /HPF (0-2) Urine WBC Occ /HPF (0-4) Urine Squamous Epithelial Cells Mod /LPF Urine Bacteria 0 /HPF (0-FEW) Urine Mucus Mod /LPF POC Urine HCG, Qualitative Hcg negative (Negative) Heterophil Agglutinins Negative (NEGATIVE) EKG EKG [] Radiology/Procedures Radiology/Procedures [] Course & Med Decision Making Course & Med Decision Making Pertinent Labs and Imaging studies reviewed. (See chart for details) Will get Urine Test. test is negative. Will d/c patient home to follow up with primary care doctor due to how long symptoms have been ongoing. Will prescribe nausea medication. Dragon Disclaimer Dragon Disclaimer This electronic medical record was generated, in whole or in part, using a voice recognition dictation system. Departure Departure Impression: Primary Impression: Nausea Disposition: HOME, SELF-CARE Condition: STABLE Referrals: NO PCP (PCP) Patient Instructions: Nausea, Adult Additional Instructions: Thank you for visiting [facility]. We appreciate you trusting us with your care. If any additional problems come up don't hesitate to return to visit us. Please follow up with your primary care provider so they can plan additional care if needed and know about the problem that you had. If symptoms worsen come back to the Emergency Department. Any concerning symptoms that start such as chest pain, shortness of air, weakness or numbness on one side of the body, running high fevers or any other concerning symptoms return to the ER. Please fill your medications at any pharmacy and follow the prescription instructions. Scripts Ondansetron (ONDANSETRON ODT) 4 Mg Tab.rapdis 1 TAB PO PRN Q6-8HRS PRN for NAUSEA, #16 TAB Prov: CORINE CALLES APRN 11/26/19 CORINE CALLES APRN Nov 26, 2019 13:53
[2019-11-26 14:01] LABS: BILIRUBIN,URINE NEGATIVE (NEG); CLARITY,URINE CLEAR; COLOR,URINE AMBER; NITRITE,URINE NEGATIVE (NEG); PROTEIN,URINE NEGATIVE (NEG-TRACE)
[2019-11-26] MEDS ORDERED: ONDANSETRON ODT 4 MG TAB.RAPDIS. PO STA (14:09)
[2019-11-26 14:15] LABS: SQUAMOUS EPITHELIAL CELL,UR MOD /LPF
[2019-11-26 14:16] LABS: BACTERIA,URINE 0 /HPF (0-FEW); WBC,URINE OCC /HPF (0-4)
[2019-11-26] MEDS ORDERED: ONDA4TAB12 PO (14:16)
[2019-11-26 15:24] LABS: MONONUCLEOSIS PATIENT NEGATIVE (NEGATIVE)
== END 2019-11-26 15:48 | disposition home or self-care (01) ==
LOC: ER 11:39
DX: R11.2 Nausea with vomiting, unspecified (principal); R19.7 Diarrhea, unspecified; N93.9 Abnormal uterine and vaginal bleeding, unspecified; R53.83 Other fatigue; Z98.890 Other specified postprocedural states
CPT/HCPCS: 81001; 81025; 86308; 99284; Q0162